=== PATIENT | female | born 1985 | race African-American/Black ===

== ENCOUNTER 2020-06-22 22:39 | Emergency (ER) | payer MEDICARE, MEDICAID ==
[~2020-06-22] VITALS: Ht 180.3 cm; Wt 127.3 kg
[~2020-06-22 22:39] MED LIST: LISI-662 PO; RISP3TAB14 PO
[2020-06-22] MEDS ORDERED: LISI-660 PO (22:58)
[2020-06-22] MEDS ORDERED: ARIP2 PO (22:58)
[2020-06-22] MEDS ORDERED: BENZ0.5T44 PO (22:58)
[2020-06-22] MEDS ORDERED: TOPI25 PO (22:58)
[2020-06-22] MEDS ORDERED: METF-960 PO (22:58)
[2020-06-23] MEDS ORDERED: CEPHALEXIN MONOHYDRATE 500 MG CAPSULE PO ONE (01:30)
[2020-06-23] MEDS ORDERED: PERTUSS(ACELL),DIPH,TET VAC/PF 0.5 ML VIAL IM ONE (01:30)
[2020-06-23 01:45] LABS: BASOPHILS % (AUTO) 0.6 % (0.0-2.0); EOSINOPHILS % (AUTO) 1.8 % (1.0-6.0); HEMATOCRIT 37.9 % (36-46); HEMOGLOBIN 12.5 g/dL (12.0-16.0); LYMPHOCYTES % (AUTO) 25.9 % (22.0-44.0); MEAN CORPUSCULAR HEMOGLOBIN 28.7 pg (26.0-34.0); MEAN CORPUSCULAR HGB CONC 33.1 G/dL (31.0-37.0); MEAN CORPUSCULAR VOLUME 87 fL (80-100); MONOCYTES # (AUTO) 0.6 K/uL (0.1-1.0); MONOCYTES % (AUTO) 5.5 % (2.0-9.0); NEUTROPHILS # (AUTO) 7.6 K/uL (1.8-7.7); NEUTROPHILS % (AUTO) 66.2 % (40.0-70.0); PLATELET COUNT (AUTO) 429 K/uL (150-450); RED BLOOD CELL COUNT(AUTO) 4.36 MIL/uL (4.00-5.20); RED CELL DISTRIBUTION WIDTH 15.5 % (11.5-14.5)
[2020-06-23 01:53] LABS: ANION GAP 10 mmol/L (8-16); CALCIUM, TOTAL 8.5 mg/dL (8.8-10.5); CARBON DIOXIDE 27 mmol/L (22-29); CHLORIDE 106 mmol/L (98-107); CREATININE 0.85 mg/dL (0.60-1.30); GLOMERULAR FILTR. RATE CALC > 60 mL/min (>60); GLUCOSE,RANDOM 131 mg/dL (70-110); POTASSIUM 3.3 mmol/L (3.5-5.1); SODIUM SERUM 143 mmol/L (136-145); UREA NITROGEN, BLOOD 8 mg/dL (7-18)
[2020-06-23 02:05] LABS: ALANINE AMINOTRANSFERASE 26 U/L (12-78); ALBUMIN 3.4 g/dL (3.4-5.0); ALKALINE PHOSPHATASE 71 U/L (46-116); ASPARTATE AMINOTRANSFERASE 18 U/L (15-37); BILIRUBIN,TOTAL 0.3 mg/dL (0.1-1.0); HCG,QUANTITATIVE 1 mIU/mL (0-6)
[2020-06-23 02:30] VITALS: BP 147/94
[2020-06-23] MEDS ORDERED: POTASSIUM CHLORIDE 10% 40 MEQ/30 ML LIQUID UDCUP PO ONE (04:15)
== END 2020-06-23 06:07 | disposition home or self-care (01) ==
LOC: EMS 22:39
DX: S93.602A Unspecified sprain of left foot, initial encounter (principal); F25.9 Schizoaffective disorder, unspecified; F15.10 Other stimulant abuse, uncomplicated; X58.XXXA Exposure to other specified factors, initial encounter; Y93.89 Activity, other specified; Y92.89 Other specified places as the place of occurrence of the external cause; Y99.8 Other external cause status
CPT/HCPCS: 36415; 73630; 80053; 84702; 85025; 90471; 90715; 99284; G0480

== ENCOUNTER 2020-06-24 02:26 | Emergency (ER) | payer MEDICARE, MEDICAID ==
[~2020-06-24] VITALS: Ht 167.6 cm; Wt 109.1 kg
[~2020-06-24 02:26] MED LIST changes: +ARIP2 PO; +BENZ0.5T44 PO; +LISI-660 PO; +METF-960 PO; -RISP3TAB14 PO; +TOPI25 PO
[2020-06-24 03:03] LABS: BASOPHILS % (AUTO) 0.6 % (0.0-2.0); EOSINOPHILS % (AUTO) 1.2 % (1.0-6.0); HEMATOCRIT 38.1 % (36-46); HEMOGLOBIN 12.2 g/dL (12.0-16.0); LYMPHOCYTES # (AUTO) 2.6 K/uL (1.0-4.8); LYMPHOCYTES % (AUTO) 21.3 % (22.0-44.0); MEAN CORPUSCULAR HGB CONC 32.1 G/dL (31.0-37.0); MEAN CORPUSCULAR VOLUME 87 fL (80-100); MONOCYTES # (AUTO) 0.7 K/uL (0.1-1.0); NEUTROPHILS # (AUTO) 8.6 K/uL (1.8-7.7); NEUTROPHILS % (AUTO) 70.9 % (40.0-70.0); PLATELET COUNT (AUTO) 430 K/uL (150-450); RED BLOOD CELL COUNT(AUTO) 4.36 MIL/uL (4.00-5.20); RED CELL DISTRIBUTION WIDTH 15.2 % (11.5-14.5)
[2020-06-24 03:13] LABS: ANION GAP 6 mmol/L (8-16); CALCIUM, TOTAL 8.5 mg/dL (8.8-10.5); CARBON DIOXIDE 28 mmol/L (22-29); CHLORIDE 107 mmol/L (98-107); CREATININE 0.74 mg/dL (0.60-1.30); GLOMERULAR FILTR. RATE CALC > 60 mL/min (>60); GLUCOSE,RANDOM 117 mg/dL (70-110); POTASSIUM 3.4 mmol/L (3.5-5.1); SODIUM SERUM 141 mmol/L (136-145); UREA NITROGEN, BLOOD 9 mg/dL (7-18)
[2020-06-24 03:18] LABS: ALANINE AMINOTRANSFERASE 27 U/L (12-78); ALBUMIN 3.4 g/dL (3.4-5.0); ALKALINE PHOSPHATASE 73 U/L (46-116); ASPARTATE AMINOTRANSFERASE 21 U/L (15-37); BILIRUBIN,TOTAL 0.3 mg/dL (0.1-1.0); TOTAL PROTEIN, SERUM 7.3 g/dL (6.4-8.2)
[2020-06-24] MEDS ORDERED: POTASSIUM CHLORIDE 20 MEQ ER TABLET PO ONE (03:30)
[2020-06-24 07:57] VITALS: BP 111/61
== END 2020-06-24 07:58 | disposition home or self-care (01) ==
LOC: EMS 02:28
DX: F25.9 Schizoaffective disorder, unspecified (principal); E11.9 Type 2 diabetes mellitus without complications; F31.9 Bipolar disorder, unspecified; F15.90 Other stimulant use, unspecified, uncomplicated; Z59.0 Homelessness
CPT/HCPCS: 36415; 80053; 85025; 99284; G0480

== ENCOUNTER 2022-04-23 06:12 | Emergency (ER) | payer MEDICARE, OTHER ==
[~2022-04-23 06:12] MED LIST changes: -ARIP2 PO; +ARIP2TAB27 PO; -BENZ0.5T44 PO; +BENZ0.5T49 PO; -LISI-660 PO; -LISI-662 PO; +LISI-892 PO; +LISI-894 PO; +METF-1211 PO; -METF-960 PO
== END 2022-04-23 06:30 | disposition home or self-care (01) ==
LOC: EMS 06:13
DX: M25.562 Pain in left knee (principal); M25.561 Pain in right knee; E11.9 Type 2 diabetes mellitus without complications; E03.9 Hypothyroidism, unspecified; F20.9 Schizophrenia, unspecified; F31.9 Bipolar disorder, unspecified; F17.210 Nicotine dependence, cigarettes, uncomplicated; Z59.00 Homelessness unspecified
CPT/HCPCS: 99283; Z7502

== ENCOUNTER 2022-04-23 13:28 | Emergency (ER) | payer MEDICARE, OTHER ==
[~2022-04-23] VITALS: Ht 180.3 cm; Wt 127.3 kg
[2022-04-23 13:39] VITALS: BP 150/93
== END 2022-04-23 18:04 | disposition left against medical advice (07) ==
LOC: EMS 13:34
DX: Z53.21 Procedure and treatment not carried out due to patient leaving prior to being seen by health care provider (principal)

== ENCOUNTER 2022-10-05 04:59 | Emergency (ER) | payer MEDICARE, OTHER ==
[~2022-10-05] VITALS: Ht 182.9 cm; Wt 135.0 kg
[2022-10-05 05:33] LABS: BASOPHILS % (AUTO) 0.4 % (0.0-2.0); EOSINOPHILS % (AUTO) 1.6 % (1.0-6.0); HEMATOCRIT 35.4 % (36-46); HEMOGLOBIN 11.2 g/dL (12.0-16.0); LYMPHOCYTES # (AUTO) 3.5 K/uL (1.0-4.8); LYMPHOCYTES % (AUTO) 29.4 % (22.0-44.0); MEAN CORPUSCULAR HEMOGLOBIN 26.8 pg (26.0-34.0); MEAN CORPUSCULAR HGB CONC 31.7 G/dL (31.0-37.0); MEAN CORPUSCULAR VOLUME 85 fL (80-100); MONOCYTES # (AUTO) 0.8 K/uL (0.1-1.0); MONOCYTES % (AUTO) 6.9 % (2.0-9.0); NEUTROPHILS # (AUTO) 7.3 K/uL (1.8-7.7); NEUTROPHILS % (AUTO) 61.7 % (40.0-70.0); PLATELET COUNT (AUTO) 474 K/uL (150-450); RED BLOOD CELL COUNT(AUTO) 4.19 MIL/uL (4.00-5.20); RED CELL DISTRIBUTION WIDTH 15.8 % (11.5-14.5)
[2022-10-05 05:40] LABS: ANION GAP 9 mmol/L (8-16); CALCIUM, TOTAL 8.3 mg/dL (8.8-10.5); CARBON DIOXIDE 25 mmol/L (22-29); CHLORIDE 105 mmol/L (98-107); CREATININE 0.81 mg/dL (0.60-1.30); GLUCOSE,RANDOM 167 mg/dL (70-110); POTASSIUM 3.3 mmol/L (3.5-5.1); SODIUM SERUM 139 mmol/L (136-145); UREA NITROGEN, BLOOD 7 mg/dL (7-18)
[2022-10-05 05:41] LABS: GLOMERULAR FILTR. RATE CALC > 60 mL/min (>60)
[2022-10-05 05:52] LABS: ALANINE AMINOTRANSFERASE 26 U/L (12-78); ALBUMIN 3.3 g/dL (3.4-5.0); ALKALINE PHOSPHATASE 80 U/L (46-116); ASPARTATE AMINOTRANSFERASE 16 U/L (15-37); BILIRUBIN,TOTAL 0.1 mg/dL (0.1-1.0); HCG,QUANTITATIVE < 1 mIU/mL (0-6); TOTAL PROTEIN, SERUM 7.5 g/dL (6.4-8.2)
[2022-10-05 08:29] LABS: COVID AG,FIA SOURCE NASAL SWAB
[2022-10-05 09:05] VITALS: BP 130/78
[2022-10-05] MEDS ORDERED: LEVO75 PO ×2 (10:29→11:33)
== END 2022-10-05 13:04 | disposition home or self-care (01) ==
LOC: EMS 04:59
DX: F31.9 Bipolar disorder, unspecified (principal); E11.9 Type 2 diabetes mellitus without complications; F20.9 Schizophrenia, unspecified; E03.9 Hypothyroidism, unspecified; Z59.00 Homelessness unspecified; Z76.0 Encounter for issue of repeat prescription; Z00.8 Encounter for other general examination; Z20.822 Contact with and (suspected) exposure to COVID-19
CPT/HCPCS: 99285; 87426; 80053; 84702; 85025; 36415; G0480

== ENCOUNTER 2024-02-25 18:43 | Emergency (ER) | payer MEDICARE, MEDICAID ==
[~2024-02-25] VITALS: Ht 175.3 cm; Wt 117.6 kg
[~2024-02-25 18:43] MED LIST changes: -BENZ0.5T49 PO; +BENZ0.5T6 PO; +LEVO75 PO
[2024-02-25 19:27] VITALS: BP 156/94; PULSE 104; RESP 17; TEMP 98.3
[2024-02-25 19:31] LABS: BASOPHILS % (AUTO) 0.5 % (0.0-2.0); EOSINOPHILS % (AUTO) 1.6 % (1.0-6.0); HEMATOCRIT 39.5 % (36-46); HEMOGLOBIN 12.5 g/dL (12.0-16.0); LYMPHOCYTES # (AUTO) 3.2 K/uL (1.0-4.8); LYMPHOCYTES % (AUTO) 23.2 % (22.0-44.0); MEAN CORPUSCULAR HEMOGLOBIN 27.9 pg (26.0-34.0); MEAN CORPUSCULAR HGB CONC 31.8 G/dL (31.0-37.0); MEAN CORPUSCULAR VOLUME 88 fL (80-100); MONOCYTES # (AUTO) 0.9 K/uL (0.1-1.0); MONOCYTES % (AUTO) 6.4 % (2.0-9.0); NEUTROPHILS # (AUTO) 9.3 K/uL (1.8-7.7); NEUTROPHILS % (AUTO) 68.3 % (40.0-70.0); PLATELET COUNT (AUTO) 453 K/uL (150-450); RED CELL DISTRIBUTION WIDTH 16.1 % (11.5-14.5); WHITE BLOOD COUNT (AUTO) 13.6 K/uL (4.5-11.0)
[2024-02-25 19:41] LABS: ANION GAP 8 mmol/L (8-16); CALCIUM, TOTAL 9.3 mg/dL (8.8-10.5); CARBON DIOXIDE 31 mmol/L (22-29); CHLORIDE 102 mmol/L (98-107); GLOMERULAR FILTR. RATE CALC > 60 mL/min (>60); GLUCOSE,RANDOM 94 mg/dL (70-110); POTASSIUM 3.2 mmol/L (3.5-5.1); SODIUM SERUM 141 mmol/L (136-145); UREA NITROGEN, BLOOD 11 mg/dL (7-18)
[2024-02-25 19:49] LABS: ALCOHOL, BLOOD (SERUM) < 3 mg/dL (0-10)
[2024-02-25 19:54] LABS: ALANINE AMINOTRANSFERASE 36 U/L (12-78); ALBUMIN 3.3 g/dL (3.4-5.0); ALKALINE PHOSPHATASE 82 U/L (46-116); ASPARTATE AMINOTRANSFERASE 25 U/L (15-37); BILIRUBIN,TOTAL 0.3 mg/dL (0.1-1.0); HCG,QUANTITATIVE < 1 mIU/mL (0-6); TOTAL PROTEIN, SERUM 8.1 g/dL (6.4-8.2)
[2024-02-25 21:13] LABS: APPEARANCE,URINE CLEAR (CLEAR); BILIRUBIN,URINE NEGATIVE (NEGATIVE); COLOR,URINE YELLOW (YELLOW); GLUCOSE, URINE (UA) NEGATIVE (NEGATIVE); KETONES,URINE NEGATIVE (NEGATIVE); LEUKOCYTE ESTERASE ,URINE NEGATIVE (NEGATIVE); NITRATE,URINE NEGATIVE (NEGATIVE); OCCULT BLOOD,URINE NEGATIVE (NEGATIVE); PH,URINE 6.5 (5.0-8.0); PH,URINE DRUG SCREEN 6.5 (5.0-8.0); PROTEIN,URINE TRACE mg/dL (NEGATIVE); SPECIFIC GRAVITIY, URINE 1.021 (1.003-1.030); UROBILINOGEN,URINE <=1.0 mg/dL (<=1.0)
[2024-02-25 21:19] LABS: ALCOHOL, URINE DRUG SCREEN NEGATIVE (NEGATIVE); AMPHET/METH SCREEN,URINE POSITIVE (NEGATIVE); BARBITURATE SCREEN, URINE NEGATIVE (NEGATIVE); BENZODIAZEPINES SCREEN,URINE NEGATIVE (NEGATIVE); CANNABINOID SCREEN,URINE NEGATIVE (NEGATIVE); COCAINE SCREEN,URINE NEGATIVE (NEGATIVE); METHADONE SCREEN, URINE NEGATIVE (NEGATIVE); OPIATE SCREEN,URINE NEGATIVE (NEGATIVE); PHENCYCLIDINE SCREEN,URINE NEGATIVE (NEGATIVE)
[2024-02-25] MEDS ORDERED: LORazepam 2 MG TABLET PO ONE (22:00)
[2024-02-25] MEDS ORDERED: OLANZapine 5 MG RAPDIS TABLET PO ONE (22:00)
[2024-02-25] MEDS: POTASSIUM CHLORIDE 20 MEQ ER TABLET PO ONE (22:19)
== END 2024-02-26 04:04 | disposition home or self-care (01) ==
LOC: EMS 18:43
DX: F25.0 Schizoaffective disorder, bipolar type (principal); F15.10 Other stimulant abuse, uncomplicated; E11.9 Type 2 diabetes mellitus without complications; E03.9 Hypothyroidism, unspecified; F17.210 Nicotine dependence, cigarettes, uncomplicated; Z59.00 Homelessness unspecified
CPT/HCPCS: 99283; 80053; 82962; 84702; 85025; 36415; 80307; 81003; G0480

== ENCOUNTER 2024-10-14 10:16 | Emergency (ER) | payer MEDICARE, MEDICAID ==
[~2024-10-14] VITALS: Ht 180.3 cm; Wt 119.5 kg
[~2024-10-14 10:16] MED LIST changes: +BENZ0.5T52 PO; -BENZ0.5T6 PO; +TOPI-257 PO; -TOPI25 PO
[2024-10-14 10:36] VITALS: BP 189/129; PULSE 98; RESP 16; TEMP 98; O2SAT 98
[2024-10-14] MEDS ORDERED: ARIP10TA38 PO (11:50)
[2024-10-14] MEDS: LISINOPRIL 10 MG TABLET PO ONE (12:00)
[2024-10-14 12:11] LABS: BASOPHILS % (AUTO) 0.6 % (0.0-2.0); EOSINOPHILS % (AUTO) 0.7 % (1.0-6.0); HEMATOCRIT 39.1 % (36-46); HEMOGLOBIN 12.6 g/dL (12.0-16.0); LYMPHOCYTES # (AUTO) 2.6 K/uL (1.0-4.8); MEAN CORPUSCULAR HEMOGLOBIN 28.8 pg (26.0-34.0); MEAN CORPUSCULAR HGB CONC 32.3 G/dL (31.0-37.0); MEAN CORPUSCULAR VOLUME 89 fL (80-100); MONOCYTES # (AUTO) 0.9 K/uL (0.1-1.0); MONOCYTES % (AUTO) 6.8 % (2.0-9.0); NEUTROPHILS # (AUTO) 9.5 K/uL (1.8-7.7); NEUTROPHILS % (AUTO) 71.9 % (40.0-70.0); PLATELET COUNT (AUTO) 413 K/uL (150-450); RED BLOOD CELL COUNT(AUTO) 4.39 MIL/uL (4.00-5.20); RED CELL DISTRIBUTION WIDTH 13.7 % (11.5-14.5); WHITE BLOOD COUNT (AUTO) 13.2 K/uL (4.5-11.0)
[2024-10-14 12:25] LABS: ANION GAP 8 mmol/L (8-16); CALCIUM, TOTAL 8.5 mg/dL (8.8-10.5); CARBON DIOXIDE 28 mmol/L (22-29); CHLORIDE 105 mmol/L (98-107); CREATININE 0.71 mg/dL (0.60-1.30); GLOMERULAR FILTR. RATE CALC > 60 mL/min (>60); GLUCOSE,RANDOM 90 mg/dL (70-110); SODIUM SERUM 141 mmol/L (136-145); UREA NITROGEN, BLOOD 13 mg/dL (7-18)
[2024-10-14 12:45] LABS: ALCOHOL, BLOOD (SERUM) < 3 mg/dL (0-10)
[2024-10-14] MEDS: POTASSIUM CHLORIDE 20 MEQ ER TABLET PO ONE (14:04)
== END 2024-10-14 16:32 | disposition home or self-care (01) ==
LOC: EMS 10:16
DX: F20.9 Schizophrenia, unspecified (principal); E87.6 Hypokalemia; D72.829 Elevated white blood cell count, unspecified; E03.9 Hypothyroidism, unspecified; E11.9 Type 2 diabetes mellitus without complications; F31.9 Bipolar disorder, unspecified; F17.210 Nicotine dependence, cigarettes, uncomplicated; F15.90 Other stimulant use, unspecified, uncomplicated; Z59.00 Homelessness unspecified
CPT/HCPCS: 99284; 99406; 80048; 84703; 85025; 87491; 87591; G0480

== ENCOUNTER 2024-10-21 11:48 | Inpatient (IN) | payer MEDICARE, MEDICAID ==
[~2024-10-21] VITALS: Ht 180.3 cm; Wt 116.6 kg
[~2024-10-21 11:48] MED LIST changes: +ARIP10TA38 PO; -ARIP2TAB27 PO; -LISI-894 PO; +OLAN5TAB77 PO
[2024-10-21] MEDS ORDERED: DOCU-385 PO (14:52)
[2024-10-21] MEDS ORDERED: NICO-803 TD (14:53)
[2024-10-21] MEDS ORDERED: PANT-31 PO (14:54)
[2024-10-21] MEDS ORDERED: ACET-2247 PO (14:56)
[2024-10-21] MEDS ORDERED: BISA-151 PO (14:58)
[2024-10-21] MEDS ORDERED: HALO5TAB23 PO (14:59)
[2024-10-21] MEDS ORDERED: MAGN-169 PO (15:00)
[2024-10-21] MEDS ORDERED: LORA2TAB18 PO (15:00)
[2024-10-21 18:30] VITALS: BP 155/108; PULSE 95; RESP 18; TEMP 97.6; O2SAT 97
[2024-10-21] MEDS: OLANZapine 5 MG TABLET PO SCH (20:29)
[2024-10-21 20:30] VITALS: RESP 18
[2024-10-22 09:43] VITALS: BP 184/110; PULSE 78; RESP 17; TEMP 97.8; O2SAT 96
[2024-10-22] MEDS ORDERED: ACETAMINOPHEN 325 MG TABLET PO PRN (11:30)
[2024-10-22] MEDS ORDERED: ALBUTEROL SULFATE HFA 90 MCG/PUFF 8 GM INHALER IH PRN (11:30)
[2024-10-22] MEDS ORDERED: PETROLATUM,WHITE 28 GM JELLY TP PRN (11:30)
[2024-10-22] MEDS: NICOTINE 21 MG/24 HOUR PATCH TD SCH (12:26)
[2024-10-22] MEDS: DOCUSATE SODIUM 100 MG CAPSULE PO SCH (16:56)
[2024-10-22] MEDS: MetFORMIN HCL 500 MG TABLET PO SCH (16:56)
[2024-10-22] MEDS ORDERED: OLANZapine 5 MG TABLET PO SCH (21:00)
[2024-10-22 22:03] VITALS: RESP 18
[2024-10-23 02:20] VITALS: BP 158/98; PULSE 96; RESP 18; TEMP 98; O2SAT 98
[2024-10-23] MEDS: LEVOTHYROXINE SODIUM 75 MCG TABLET PO SCH (06:03)
[2024-10-23] MEDS ORDERED: LEVOTHYROXINE SODIUM 75 MCG TABLET PO SCH (07:00)
[2024-10-23] MEDS: TOPIRAMATE 25 MG TABLET PO SCH (07:53)
[2024-10-23] MEDS: CloNIDine HCL 0.1 MG TABLET PO PRN (07:53)
[2024-10-23] MEDS: PANTOPRAZOLE SODIUM 40 MG DR TABLET PO SCH (07:54)
[2024-10-23] MEDS: AmLODIPine BESYLATE 10 MG TABLET PO SCH (08:15)
[2024-10-23] MEDS: LISINOPRIL 10 MG TABLET PO SCH (08:15)
[2024-10-23] MEDS ORDERED: PANTOPRAZOLE SODIUM 40 MG DR TABLET PO SCH (09:00)
[2024-10-23 11:37] VITALS: BP 189/117; PULSE 100; RESP 17; TEMP 98.1; O2SAT 96
[2024-10-23] MEDS: MetFORMIN HCL 500 MG TABLET PO SCH (17:34)
[2024-10-23 21:36] VITALS: BP 164/83; PULSE 92; RESP 18; TEMP 97.9; O2SAT 98
[2024-10-24 09:30] VITALS: BP 156/110; PULSE 80; RESP 18; TEMP 97.9; O2SAT 99
[2024-10-24] MEDS: NICOTINE POLACRILEX 2 MG LOZENGE PO PRN (11:01)
[2024-10-24 20:06] VITALS: BP 134/81; PULSE 95; RESP 20; TEMP 97.5; O2SAT 98
[2024-10-24] MEDS: ZOLPIDEM TARTRATE 5 MG TABLET PO PRN (20:55)
[2024-10-25 08:30] VITALS: BP 139/79; PULSE 90; RESP 18; TEMP 97.6; O2SAT 99
[2024-10-25] MEDS: MAGNESIUM HYDROXIDE SUSPENSION 30 ML UDCUP PO PRN (17:28)
[2024-10-25 20:55] VITALS: RESP 18
[2024-10-26 10:07] VITALS: BP 155/102; PULSE 72; RESP 17; TEMP 97.8; O2SAT 97
[2024-10-26 21:45] VITALS: RESP 18
[2024-10-27 08:49] VITALS: BP 136/80; PULSE 97; RESP 18; TEMP 98.1; O2SAT 97
[2024-10-27 21:22] VITALS: RESP 18
[2024-10-28 09:53] VITALS: RESP 18
[2024-10-28 21:17] VITALS: RESP 18
[2024-10-29] MEDS: LORazepam 2 MG TABLET PO PRN (09:39)
[2024-10-29 10:58] VITALS: RESP 18
[2024-10-29 21:11] VITALS: RESP 18
[2024-10-30 10:34] VITALS: BP 159/84; PULSE 81; RESP 18; TEMP 98.1; O2SAT 97
[2024-10-30 22:45] VITALS: BP 117/73; PULSE 95; RESP 18; TEMP 97.6; O2SAT 95
[2024-10-31] MEDS: LOPERAMIDE HCL 2 MG CAPSULE PO PRN (07:57)
[2024-10-31] MEDS: HALOPERIDOL 5 MG TABLET PO PRN (07:57)
[2024-10-31 10:35] VITALS: BP 141/81; PULSE 94; RESP 18; TEMP 97.3; O2SAT 97
[2024-10-31 23:26] VITALS: PULSE 107; RESP 18; TEMP 98.7; O2SAT 98
[2024-11-01 10:03] VITALS: BP 139/87; PULSE 72; RESP 18; TEMP 97.5; O2SAT 95
[2024-11-01 21:10] VITALS: RESP 18; TEMP 98.2
[2024-11-02 06:46] VITALS: BP 121/72; PULSE 90; RESP 18; TEMP 98.2; O2SAT 96
[2024-11-02 08:43] VITALS: BP 102/60; PULSE 85; RESP 18; TEMP 96.9; O2SAT 95
[2024-11-02 20:41] VITALS: RESP 18
[2024-11-03 07:03] LABS: BASOPHILS % (AUTO) 0.3 % (0.0-2.0); EOSINOPHILS % (AUTO) 1.2 % (1.0-6.0); HEMATOCRIT 41.9 % (36-46); HEMOGLOBIN 13.5 g/dL (12.0-16.0); LYMPHOCYTES # (AUTO) 1.5 K/uL (1.0-4.8); LYMPHOCYTES % (AUTO) 11.9 % (22.0-44.0); MEAN CORPUSCULAR HEMOGLOBIN 28.9 pg (26.0-34.0); MEAN CORPUSCULAR HGB CONC 32.2 G/dL (31.0-37.0); MEAN CORPUSCULAR VOLUME 90 fL (80-100); MONOCYTES % (AUTO) 7.7 % (2.0-9.0); NEUTROPHILS # (AUTO) 9.9 K/uL (1.8-7.7); NEUTROPHILS % (AUTO) 78.9 % (40.0-70.0); PLATELET COUNT (AUTO) 462 K/uL (150-450); RED BLOOD CELL COUNT(AUTO) 4.67 MIL/uL (4.00-5.20); WHITE BLOOD COUNT (AUTO) 12.6 K/uL (4.5-11.0)
[2024-11-03 07:37] LABS: ALANINE AMINOTRANSFERASE 69 U/L (12-78); ALBUMIN 2.8 g/dL (3.4-5.0); ALKALINE PHOSPHATASE 58 U/L (46-116); ANION GAP 10 mmol/L (8-16); ASPARTATE AMINOTRANSFERASE 32 U/L (15-37); BILIRUBIN,TOTAL 0.4 mg/dL (0.1-1.0); CALCIUM, TOTAL 8.1 mg/dL (8.8-10.5); CARBON DIOXIDE 21 mmol/L (22-29); CHLORIDE 106 mmol/L (98-107); CHOL/HDL RATIO 3.4 (3.9-5.7); CHOLESTEROL 106 mg/dL (131-200); CREATININE 0.71 mg/dL (0.60-1.30); GLOMERULAR FILTR. RATE CALC > 60 mL/min (>60); GLUCOSE,RANDOM 112 mg/dL (70-110); HDL CHOLESTEROL 31 mg/dL (40-60); LDL CHOL (CALC.) 64 mg/dL (0-130); POTASSIUM 3.6 mmol/L (3.5-5.1); SODIUM SERUM 137 mmol/L (136-145); TOTAL PROTEIN, SERUM 7.1 g/dL (6.4-8.2); TRIGLYCERIDES 55 mg/dL (15-150); UREA NITROGEN, BLOOD 17 mg/dL (7-18)
[2024-11-03 12:21] VITALS: BP 104/60; PULSE 96; RESP 18; TEMP 97.7
[2024-11-03] MEDS: ONDANSETRON 4 MG TABLET PO PRN (21:45)
[2024-11-03 22:11] VITALS: RESP 18
[2024-11-04 08:00] VITALS: BP 110/68; PULSE 80; RESP 17; TEMP 98
[2024-11-04 21:50] VITALS: RESP 18
[2024-11-05] MEDS: LACTULOSE 20 GM/30 ML SOLUTION UDCUP PO PRN (06:22)
[2024-11-05 10:20] VITALS: BP 153/93; PULSE 78; RESP 18; TEMP 97.7
[2024-11-05 22:34] VITALS: BP 145/102; PULSE 109; RESP 18; TEMP 97.5; O2SAT 97
[2024-11-06 09:44] VITALS: BP 146/96; PULSE 107; RESP 20; TEMP 98.1; O2SAT 98
[2024-11-06] MEDS: LACTULOSE 20 GM/30 ML SOLUTION UDCUP PO PRN (17:38)
[2024-11-06 21:06] VITALS: RESP 18
[2024-11-07 11:06] VITALS: BP 160/100; PULSE 11; RESP 18; TEMP 97.9; O2SAT 98
[2024-11-07 20:58] VITALS: RESP 18; TEMP 97.3
[2024-11-08 09:57] VITALS: BP 122/92; PULSE 102; RESP 19; TEMP 97.6; O2SAT 100
[2024-11-08] MEDS ORDERED: DiphenhydrAMINE HCL 50 MG/ML VIAL ONE (19:49)
[2024-11-08] MEDS ORDERED: LORazepam 2 MG/ML VIAL ONE (19:49)
[2024-11-08] MEDS ORDERED: HALOPERIDOL LACTATE 5 MG/ML VIAL ONE (19:49)
[2024-11-08 20:10] VITALS: RESP 18
[2024-11-08] MEDS: LORazepam 2 MG/ML VIAL IM ONE (21:14)
[2024-11-08] MEDS: DiphenhydrAMINE HCL 50 MG/ML VIAL IM ONE (21:16)
[2024-11-08] MEDS: HALOPERIDOL LACTATE 5 MG/ML VIAL IM ONE (21:16)
[2024-11-09] MEDS: GuaiFENesin/D-METHORPHAN [SUGAR-FREE] 200-20MG/10 ML SYRUP UDCUP PO PRN (03:21)
[2024-11-09 09:50] VITALS: BP 109/68; PULSE 93; RESP 18; TEMP 97.9; O2SAT 97
[2024-11-09 22:04] VITALS: RESP 18
[2024-11-10] MEDS: DOCUSATE SODIUM 100 MG CAPSULE PO PRN (02:32)
[2024-11-10 13:02] VITALS: BP 152/103; PULSE 78; RESP 19; TEMP 97.6; O2SAT 97
[2024-11-10 20:54] VITALS: RESP 18
[2024-11-11 11:17] VITALS: RESP 17
[2024-11-12 12:47] VITALS: BP 142/102; PULSE 80; RESP 18; TEMP 98.1; O2SAT 100
[2024-11-12 20:12] VITALS: RESP 18
[2024-11-13 09:57] VITALS: RESP 18
[2024-11-13] MEDS: MAGNESIUM CITRATE [LEMON] 300 ML ORAL SOLUTION PO PRN (14:33)
[2024-11-13 20:51] VITALS: RESP 18
[2024-11-14 09:03] VITALS: RESP 18
[2024-11-14 21:09] VITALS: RESP 18
[2024-11-15 09:59] VITALS: RESP 19
[2024-11-15 20:44] VITALS: PULSE 96; RESP 18; TEMP 98.4; O2SAT 98
[2024-11-15] MEDS: TUBERCULIN, PURIFIED PROTEIN DERIVATIVE 5 TU/0.1 ML SYRINGE ID ONE (21:14)
[2024-11-16 09:15] VITALS: RESP 18
[2024-11-16 20:37] VITALS: RESP 18
[2024-11-17 11:07] VITALS: RESP 18
[2024-11-17] MEDS: BISACODYL 5 MG EC TABLET PO PRN (14:55)
[2024-11-17 21:15] VITALS: RESP 18
[2024-11-18 09:02] VITALS: BP 150/86; PULSE 97; RESP 20; TEMP 98.2
[2024-11-18 20:00] VITALS: BP 150/80; PULSE 90; RESP 19; TEMP 98
[2024-11-19] MEDS: MAG HYDROX/ALUMINUM HYD/SIMETH ES 30 ML SUSPENSION UDCUP PO PRN (08:00)
[2024-11-19] MEDS: IBUPROFEN 400 MG TABLET PO PRN (09:46)
[2024-11-19 10:07] VITALS: RESP 18
[2024-11-19] MEDS ORDERED: LORazepam 2 MG TABLET PO ONE (20:15)
[2024-11-19] MEDS: LORazepam 2 MG/ML VIAL IM ONE (20:36)
[2024-11-19] MEDS: DiphenhydrAMINE HCL 50 MG/ML VIAL IM ONE (20:36)
[2024-11-19] MEDS: HALOPERIDOL LACTATE 5 MG/ML VIAL IM ONE (20:38)
[2024-11-19 22:06] VITALS: RESP 18
[2024-11-20 09:00] VITALS: RESP 18
[2024-11-20 21:43] VITALS: BP 140/78; PULSE 90; RESP 18; TEMP 97.8; O2SAT 96
[2024-11-21 13:11] VITALS: BP 144/92; PULSE 100; RESP 19; TEMP 97.6; O2SAT 97
[2024-11-21 20:36] VITALS: BP 136/74; PULSE 85; RESP 18; TEMP 98; O2SAT 97
[2024-11-21] MEDS: OLANZapine 10 MG TABLET PO SCH (21:03)
[2024-11-21] MEDS: TOPIRAMATE 100 MG TABLET PO SCH (21:03)
[2024-11-22] MEDS: BuPROPion HCL XL 150 MG ER TABLET PO SCH (09:56)
[2024-11-22 11:19] VITALS: RESP 18
[2024-11-22 21:14] VITALS: RESP 18
[2024-11-23 09:21] VITALS: RESP 18
[2024-11-23 20:54] VITALS: BP 109/63; PULSE 87; RESP 18; TEMP 97.9; O2SAT 97
[2024-11-24 10:33] VITALS: RESP 18
[2024-11-24 20:38] VITALS: RESP 18
[2024-11-25 10:25] VITALS: RESP 17
[2024-11-25 20:13] VITALS: RESP 18
[2024-11-26 09:26] VITALS: RESP 18
[2024-11-26 21:52] VITALS: BP 129/80; PULSE 71; RESP 18; TEMP 96.3; O2SAT 95
[2024-11-27 09:50] VITALS: RESP 18
[2024-11-27 20:47] VITALS: RESP 18
[2024-11-28 09:58] VITALS: BP 123/96; PULSE 107; RESP 18; TEMP 97.1; O2SAT 99
[2024-11-28 20:08] VITALS: RESP 18
[2024-11-29] MEDS ORDERED: ChlorproMAZINE HCL 50 MG/2 ML AMP IM PRN (07:15)
[2024-11-29] MEDS: RisperiDONE 2 MG TABLET PO SCH (09:49)
[2024-11-29 12:42] VITALS: RESP 17
[2024-11-29 21:51] VITALS: RESP 18
[2024-11-30 09:20] VITALS: RESP 19
[2024-11-30 20:00] VITALS: RESP 20
[2024-11-30 21:41] LABS: BASOPHILS % (AUTO) 1.2 % (0.0-2.0); EOSINOPHILS % (AUTO) 4.6 % (1.0-6.0); HEMATOCRIT 35.8 % (36-46); HEMOGLOBIN 11.5 g/dL (12.0-16.0); LYMPHOCYTES # (AUTO) 2.9 K/uL (1.0-4.8); LYMPHOCYTES % (AUTO) 30.8 % (22.0-44.0); MEAN CORPUSCULAR HEMOGLOBIN 28.4 pg (26.0-34.0); MEAN CORPUSCULAR HGB CONC 32.1 G/dL (31.0-37.0); MEAN CORPUSCULAR VOLUME 89 fL (80-100); MONOCYTES % (AUTO) 10.5 % (2.0-9.0); NEUTROPHILS # (AUTO) 4.9 K/uL (1.8-7.7); NEUTROPHILS % (AUTO) 52.9 % (40.0-70.0); PLATELET COUNT (AUTO) 433 K/uL (150-450); RED BLOOD CELL COUNT(AUTO) 4.04 MIL/uL (4.00-5.20); RED CELL DISTRIBUTION WIDTH 14.5 % (11.5-14.5); WHITE BLOOD COUNT (AUTO) 9.3 K/uL (4.5-11.0)
[2024-11-30 21:43] LABS: ANION GAP 8 mmol/L (8-16); CALCIUM, TOTAL 8.6 mg/dL (8.8-10.5); CARBON DIOXIDE 24 mmol/L (22-29); CHLORIDE 107 mmol/L (98-107); CREATININE 0.83 mg/dL (0.60-1.30); GLOMERULAR FILTR. RATE CALC > 60 mL/min (>60); GLUCOSE,RANDOM 127 mg/dL (70-110); POTASSIUM 3.9 mmol/L (3.5-5.1); SODIUM SERUM 139 mmol/L (136-145); UREA NITROGEN, BLOOD 15 mg/dL (7-18)
[2024-12-01 09:54] VITALS: RESP 18
[2024-12-01 20:06] VITALS: RESP 20
[2024-12-02 11:27] VITALS: RESP 18
[2024-12-02 20:56] VITALS: RESP 19
[2024-12-03 09:07] VITALS: RESP 18
[2024-12-03 20:00] VITALS: BP 126/74; PULSE 82; RESP 18; TEMP 98
[2024-12-04 09:41] VITALS: RESP 18
[2024-12-04 20:02] VITALS: RESP 18
[2024-12-05] MEDS: MULTIVITAMINS, THERAPEUTIC TABLET PO SCH (12:44)
[2024-12-05 18:08] VITALS: BP 157/92; PULSE 88; RESP 18; TEMP 97.8; O2SAT 96
[2024-12-05 20:06] VITALS: RESP 18
[2024-12-06 13:06] VITALS: RESP 19
[2024-12-06 20:16] VITALS: RESP 18
[2024-12-07 19:21] VITALS: RESP 18
[2024-12-07] MEDS: RisperiDONE 3 MG TABLET PO SCH (21:49)
[2024-12-07 22:10] VITALS: BP 136/95; PULSE 85; RESP 18; TEMP 97.5; O2SAT 98
[2024-12-08 11:07] VITALS: RESP 17
[2024-12-09 09:02] VITALS: BP 155/93; PULSE 89; RESP 18; TEMP 97.8; O2SAT 100
[2024-12-09 13:31] LABS: BASOPHILS % (AUTO) 0.6 % (0.0-2.0); EOSINOPHILS % (AUTO) 1.2 % (1.0-6.0); HEMATOCRIT 36.7 % (36-46); HEMOGLOBIN 11.9 g/dL (12.0-16.0); LYMPHOCYTES # (AUTO) 2.4 K/uL (1.0-4.8); LYMPHOCYTES % (AUTO) 22.6 % (22.0-44.0); MEAN CORPUSCULAR HEMOGLOBIN 28.6 pg (26.0-34.0); MEAN CORPUSCULAR HGB CONC 32.4 G/dL (31.0-37.0); MEAN CORPUSCULAR VOLUME 88 fL (80-100); NEUTROPHILS # (AUTO) 7.2 K/uL (1.8-7.7); NEUTROPHILS % (AUTO) 66.6 % (40.0-70.0); PLATELET COUNT (AUTO) 411 K/uL (150-450); RED BLOOD CELL COUNT(AUTO) 4.15 MIL/uL (4.00-5.20); WHITE BLOOD COUNT (AUTO) 10.8 K/uL (4.5-11.0)
[2024-12-09 13:32] LABS: ANION GAP 8 mmol/L (8-16); CARBON DIOXIDE 27 mmol/L (22-29); CHLORIDE 106 mmol/L (98-107); CREATININE 0.84 mg/dL (0.60-1.30); GLOMERULAR FILTR. RATE CALC > 60 mL/min (>60); GLUCOSE,RANDOM 85 mg/dL (70-110); POTASSIUM 3.6 mmol/L (3.5-5.1); SODIUM SERUM 141 mmol/L (136-145); UREA NITROGEN, BLOOD 19 mg/dL (7-18)
[2024-12-10 09:06] VITALS: BP 147/95; PULSE 88; RESP 18; TEMP 97.6; O2SAT 98
[2024-12-10 20:06] VITALS: RESP 19
[2024-12-11 08:43] VITALS: BP 144/95; PULSE 99; RESP 17; TEMP 98.6; O2SAT 97
[2024-12-11 08:47] VITALS: BP 144/95; PULSE 92; RESP 17; TEMP 98.6; O2SAT 97
[2024-12-11 22:34] VITALS: RESP 18
[2024-12-12] MEDS ORDERED: LORazepam 2 MG/ML VIAL ONE (08:25)
[2024-12-12] MEDS ORDERED: DiphenhydrAMINE HCL 50 MG/ML VIAL ONE (08:27)
[2024-12-12] MEDS: LORazepam 2 MG/ML VIAL IM ONE (09:04)
[2024-12-12] MEDS: ChlorproMAZINE HCL 50 MG/2 ML AMP IM ONE (09:05)
[2024-12-12] MEDS: DiphenhydrAMINE HCL 50 MG/ML VIAL IM ONE (09:05)
[2024-12-12] MEDS: CloZAPine 25 MG TABLET PO SCH (10:00)
[2024-12-12 12:37] VITALS: RESP 17
[2024-12-12] MEDS: RisperiDONE 2 MG TABLET PO SCH (20:53)
[2024-12-12 21:33] VITALS: BP 119/66; PULSE 110; RESP 18; TEMP 97.2; O2SAT 99
[2024-12-13] MEDS: CloZAPine 25 MG TABLET PO SCH ×2 (08:13→21:10)
[2024-12-13 08:28] VITALS: BP 147/84; PULSE 92; RESP 18; O2SAT 95
[2024-12-13 08:50] LABS: BASOPHILS % (AUTO) 0.9 % (0.0-2.0); EOSINOPHILS % (AUTO) 1.4 % (1.0-6.0); HEMATOCRIT 37.8 % (36-46); HEMOGLOBIN 12.1 g/dL (12.0-16.0); LYMPHOCYTES # (AUTO) 2.7 K/uL (1.0-4.8); LYMPHOCYTES % (AUTO) 23.4 % (22.0-44.0); MEAN CORPUSCULAR HEMOGLOBIN 28.4 pg (26.0-34.0); MEAN CORPUSCULAR HGB CONC 31.9 G/dL (31.0-37.0); MEAN CORPUSCULAR VOLUME 89 fL (80-100); MONOCYTES % (AUTO) 8.9 % (2.0-9.0); NEUTROPHILS # (AUTO) 7.7 K/uL (1.8-7.7); NEUTROPHILS % (AUTO) 65.4 % (40.0-70.0); PLATELET COUNT (AUTO) 457 K/uL (150-450); RED BLOOD CELL COUNT(AUTO) 4.24 MIL/uL (4.00-5.20); RED CELL DISTRIBUTION WIDTH 14.8 % (11.5-14.5); WHITE BLOOD COUNT (AUTO) 11.7 K/uL (4.5-11.0)
[2024-12-13 20:20] VITALS: RESP 18
[2024-12-13] MEDS: DiphenhydrAMINE HCL 50 MG/ML VIAL IM ONE (23:36)
[2024-12-13] MEDS: LORazepam 2 MG/ML VIAL IM ONE (23:36)
[2024-12-13] MEDS: ChlorproMAZINE HCL 50 MG/2 ML AMP IM ONE (23:37)
[2024-12-14] MEDS: CloZAPine 25 MG TABLET PO SCH ×2 (08:05→20:51)
[2024-12-14 11:05] VITALS: RESP 18
[2024-12-14 20:48] VITALS: RESP 18
[2024-12-15] MEDS: CloZAPine 25 MG TABLET PO SCH (08:50)
[2024-12-15 09:47] VITALS: RESP 18
[2024-12-16 09:52] VITALS: RESP 19
[2024-12-17] MEDS: CloZAPine 25 MG TABLET PO SCH (09:00)
[2024-12-17] MEDS ORDERED: LORazepam 2 MG/ML VIAL ONE (09:07)
[2024-12-17] MEDS ORDERED: DiphenhydrAMINE HCL 50 MG/ML VIAL ONE (09:08)
[2024-12-17] MEDS: ChlorproMAZINE HCL 50 MG/2 ML AMP IM ONE (09:21)
[2024-12-17] MEDS: DiphenhydrAMINE HCL 50 MG/ML VIAL IM ONE (09:21)
[2024-12-17] MEDS: LORazepam 2 MG/ML VIAL IM ONE (09:21)
[2024-12-17 11:57] VITALS: RESP 18
[2024-12-17 20:57] VITALS: RESP 18
[2024-12-17] MEDS: CloZAPine 100 MG TABLET PO SCH (21:05)
[2024-12-18] MEDS: CloZAPine 25 MG TABLET PO SCH (08:00)
[2024-12-18 09:24] VITALS: RESP 18
[2024-12-18] MEDS ORDERED: LISI-661 PO (09:54)
[2024-12-18] MEDS ORDERED: MULT400T15 PO (09:55)
[2024-12-18] MEDS ORDERED: CLOZ200T24 PO (10:00)
[2024-12-18] MEDS ORDERED: CLOZ50TA14 PO (10:01)
[2024-12-18] MEDS ORDERED: BUPR-50 PO (10:03)
[2024-12-18] MEDS ORDERED: AMLO-258 PO (10:05)
[2024-12-18] MEDS ORDERED: CloZAPine 100 MG TABLET PO SCH (21:00)
[2024-12-19] MEDS ORDERED: CloZAPine 25 MG TABLET PO SCH (09:00)
[2024-12-19] MEDS ORDERED: CloZAPine 100 MG TABLET PO SCH (21:00)
[2024-12-20] MEDS ORDERED: CloZAPine 100 MG TABLET PO SCH (09:00)
[2024-12-22] MEDS ORDERED: CloZAPine 25 MG TABLET PO SCH (09:00)
[2024-12-22] MEDS ORDERED: CloZAPine 100 MG TABLET PO SCH (21:00)
[2024-12-23] MEDS ORDERED: CloZAPine 25 MG TABLET PO SCH (09:00)
[2024-12-23] MEDS ORDERED: CloZAPine 100 MG TABLET PO SCH (21:00)
[2024-12-24] MEDS ORDERED: CloZAPine 100 MG TABLET PO SCH ×2 (09:00→21:00)
== END 2024-12-18 11:30 | DRG 885 ==
LOC: 3EC 16:30
PROVIDERS: ADMIT Psychiatry & Neurology Psychiatry; ATTEND Psychiatry & Neurology Psychiatry
PROC: GZHZZZZ Group Psychotherapy (ICD-10-PCS; principal; 2024-10-22)
PROC: GZ52ZZZ Individual Psychotherapy, Cognitive (ICD-10-PCS; 2024-10-23)
DX: F20.0 Paranoid schizophrenia (principal); Z59.00 Homelessness unspecified; E11.9 Type 2 diabetes mellitus without complications; I10 Essential (primary) hypertension; F15.10 Other stimulant abuse, uncomplicated; E03.9 Hypothyroidism, unspecified; G40.909 Epilepsy, unspecified, not intractable, without status epilepticus; K59.00 Constipation, unspecified; D72.829 Elevated white blood cell count, unspecified; E78.5 Hyperlipidemia, unspecified; K21.9 Gastro-esophageal reflux disease without esophagitis; F41.9 Anxiety disorder, unspecified; G47.00 Insomnia, unspecified; Z91.148 Patient's other noncompliance with medication regimen for other reason; Z79.899 Other long term (current) drug therapy
CPT/HCPCS: 74176; 80048; 80053; 80061; 83036; 84146; 84443; 85025; J1200; J1630; J2060; J3230; Q0162